=== PATIENT | female | born 1990 | race Two or more races ===

== ENCOUNTER 2020-08-02 18:36 | Outpatient (REF) | payer OTHER, SELFPAY | END 2020-08-02 18:37 | disposition home or self-care (01) | LOC: HO.LNP 18:36 | PROVIDERS: Visit Provider Internal Medicine | DX: Z20.822 Contact with and (suspected) exposure to COVID-19 (principal); J06.9 Acute upper respiratory infection, unspecified | CPT/HCPCS: U0003 ==

== ENCOUNTER 2022-09-30 20:33 | Emergency (ER) | payer OTHER, SELFPAY ==
[2022-09-30 20:54] VITALS: BP 137/83; PULSE 90; RESP 16; TEMP 36.6; O2SAT 98; BMI 30.1
--- NOTE | 2022-09-30 20:54 | ED_ITS ---
HPI - General Adult General Chief complaint: Abdominal Pain <DAVID Ayala - Last Filed: 09/30/22 20:57> Stated complaint: RIGHT FLANK PAIN <DAVID Ayala - Last Filed: 09/30/22 20:57> Time Seen by Provider: 09/30/22 21:15 <DAVID Ayala - Last Filed: 09/30/22 20:57> Source: patient <Fidel Echevarria MD - Last Filed: 09/30/22 23:51> Mode of arrival: ambulatory <Fidel Echevarria MD - Last Filed: 09/30/22 23:51> Limitations: no limitations <Fidel Echevarria MD - Last Filed: 09/30/22 23:51> History of Present Illness HPI narrative: patient complaining of right lateral lumbar area pain for last 2-3 weeks slight nausea no vomiting has 2- 3 times of diarrhea with increased anxiety no urinary symptoms no hematuria no history of kidney stone pain does get worse on movements <Fidel Echevarria MD - Last Filed: 09/30/22 23:51> Related Data Home medications: Previous Rx's Medication Instructions Recorded albuterol sulfate 90 mcg/actuation 1 inh inhalation QID PRN shortness 08/02/20 aerosol inhaler (Ventolin HFA) of breath or wheezing #8.5 grams cyclobenzaprine 10 mg tablet 10 mg PO Q8H #20 tabs 09/30/22 ibuprofen 600 mg tablet 600 mg PO Q6H PRN fever or pain 09/30/22 #30 tabs <DAVID Ayala - Last Filed: 09/30/22 20:57> Allergies/adverse reactions: Allergies Allergy/AdvReac Type Severity Reaction Status Date / Time SEASONAL ALLERGIES Allergy Mild ITCHY EYES Uncoded 09/30/22 20:57 pneumonia shot Allergy Unknown unknown Uncoded 09/30/22 20:57 <DAVID Ayala - Last Filed: 09/30/22 20:57> Review of Systems Review of Systems: Yes all other systems are reviewed and are negative <Fidel Echevarria MD - Last Filed: 09/30/22 23:51> [facility] Social History Social History: Social History Alcohol intake: current Alcohol intake frequency: holidays/special occasions only Smoked in Last 30 Days: No Use of substances other than those prescribed or required for medical reasons: No Advance Directives: No Patient : No <DAVID Ayala - Last Filed: 09/30/22 20:57> Physical Exam ED Vital Signs: Vital Signs - 24 hr 09/30/22 20:54 Temperature 97.9 F Pulse Rate 90 Respiratory Rate 16 Blood Pressure 137/83 Pulse Oximetry 98 Oxygen Delivery Method Room Air BMI result Body Mass Index 30.1 <DAVID Ayala - Last Filed: 09/30/22 20:57> Vital Signs - 24 hr 09/30/22 20:54 Temperature 97.9 F Pulse Rate 90 Respiratory Rate 16 Blood Pressure 137/83 Pulse Oximetry 98 Oxygen Delivery Method Room Air BMI result Body Mass Index 30.1 <Fidel Echevarria MD - Last Filed: 09/30/22 23:51> Appearance: Alert. Oriented X3. No acute distress. Eyes: PERRLA, No Nystagmus ENT: Pharynx normal. Oral Mucosa moist Neck: Normal inspection. Neck supple. CVS: Normal heart rate and rhythm. Pulses normal. Respiratory: No respiratory distress. Equal air entry bilateral, no wheezing/rales/rhonchi Abdomen: Soft and nontender. Bowel sounds are present, no mass palpable, no CVA tenderness Skin: Skin warm and dry. Normal skin color. Normal skin turgor. Extremities: No lower extremity edema. No calf tenderness back: Diffuse tenderness right lumbar paraspinal area no midline tenderness no severe tenderness Neuro: Oriented X 3. No motor deficit. <Fidel Echevarria MD - Last Filed: 09/30/22 23:51> Course Course Course Narrative: RME - 32 yo female presents to the ER for evaluation of worsening right lower back pain x1 week, increased urinary frequency, along with middle and suprapubic pains/pressure. She also endorses chills, nausea and diarrhea. No fevers, hematuria. No hx UTI. No CVA tenderness on exam. Plan: will start with UA, UPreg and basic labs work up. defer imaging for now. <DAVID Ayala - Last Filed: 09/30/22 20:57> Medications Administered Discontinued Medications Generic Name Dose Route Start Last Admin Trade Name Freq PRN Reason Stop Dose Admin Cyclobenzaprine HCl 10 mg 09/30/22 21:30 09/30/22 21:39 Cyclobenzaprine Hcl 10 Mg Tablet PO 09/30/22 21:31 10 mg ONCE ONE Administration Ibuprofen 600 mg 09/30/22 21:30 09/30/22 21:39 Ibuprofen 600 Mg Tablet PO 09/30/22 21:31 600 mg ONCE ONE Administration Ondansetron HCl 4 mg 09/30/22 22:38 09/30/22 22:45 Ondansetron Odt 4 Mg Tab.Rapdis TRANSLINGU 09/30/22 22:39 Not Given ONCE ONE <DAVID Ayala - Last Filed: 09/30/22 20:57> Medications Administered Discontinued Medications Generic Name Dose Route Start Last Admin Trade Name Freq PRN Reason Stop Dose Admin Cyclobenzaprine HCl 10 mg 09/30/22 21:30 09/30/22 21:39 Cyclobenzaprine Hcl 10 Mg Tablet PO 09/30/22 21:31 10 mg ONCE ONE Administration Ibuprofen 600 mg 09/30/22 21:30 09/30/22 21:39 Ibuprofen 600 Mg Tablet PO 09/30/22 21:31 600 mg ONCE ONE Administration Ondansetron HCl 4 mg 09/30/22 22:38 09/30/22 22:45 Ondansetron Odt 4 Mg Tab.Rapdis TRANSLINGU 09/30/22 22:39 Not Given ONCE ONE <Fidel Echevarria MD - Last Filed: 09/30/22 23:51> Medical Decision Making Medical Decision Making MDM Narrative: Patient with right lower back pain workup is negative except for very few RBCs in the urine clinically patient is muscular in character will discharge p atient on ibuprofen and muscle relaxer <Fidel Echevarria MD - Last Filed: 09/30/22 23:51> Lab Data [facility] Lab Attestation statement: I reviewed the patient's lab results. <Fidel Echevarria MD - Last Filed: 09/30/22 23:51> Result Diagrams: 09/30/22 21:25 09/30/22 21:25 <DAVID Ayala - Last Filed: 09/30/22 20:57> Labs: Lab Results 09/30/22 09/30/22 09/30/22 Range/Units 21:16 21:16 21:25 WBC 12.0 H (4.8-10.8) X10*3/uL RBC 4.09 L (4.20-5.50) X10*6/uL Hgb 12.3 (12.0-16.0) g/dl Hct 36.1 L (37.0-47.0) % MCV 88.3 (80.0-98.0) fL MCH 30.1 (27.0-33.0) pg MCHC 34.1 (31.0-35.0) g/dl RDW 12.5 (11.0-16.0) % Plt Count 306 (160-400) X10*3/uL MPV 9.6 (9.4-12.3) fL Immature Gran % (Auto) 0.3 (0.0-0.4) % Neut % (Auto) 59.2 (45-73) % Lymph % (Auto) 31.9 (20-40) % [place] % (Auto) 5.5 (2-11) % Eos % (Auto) 2.6 (0-4) % Baso % (Auto) 0.5 (0-2) % Lymph # (Auto) 3.8 (1.2-4.9) X10*3/uL [place] # (Auto) 0.7 (0.1-1.2) X10*3/uL Eos # (Auto) 0.3 (0.0-0.4) X10*3/uL Baso # (Auto) 0.1 (0.0-0.2) X10*3/uL Abs Immat Gran (auto) 0.03 (0.00-0.03) X10*3/uL Absolute Neuts (auto) 7.1 (2.0-8.3) x10*3/uL Absolute Nucleated RBC 0.000 (0.0-0.012) X10*3/uL Nucleated RBC % (auto) 0.0 (0.0-0.2) /100WBC Sodium (135-145) mmol/L Potassium (3.3-5.1) mmol/L Chloride (96-108) mmol/L Carbon Dioxide (22-29) mmol/L Anion Gap (12-20) BUN (9-16) mg/dL Creatinine (0.5-1.4) mg/dL Estim Creat Clear Calc Estimated GFR Random Glucose (60-115) mg/dL Calcium (8.4-10.2) mg/dL Total Bilirubin (0.0-1.0) mg/dL Direct Bilirubin (0.0-0.5) mg/dL AST (5-31) U/L ALT (0-31) U/L Alkaline Phosphatase (39-117) U/L Total Protein (6.5-8.0) g/dL Albumin (3.5-5.0) g/dL Lipase (8-78) U/L Urine Color Yellow Urine Appearance Clear Urine pH 5.5 (5.0-9.0) Ur Specific [place] 1.020 (1.005-1.025) Urine Protein Negative (Neg-Trace) mg/dL Urine Glucose (UA) Negative (Negative) mg/dL Urine Ketones Negative (Negative) mg/dL Urine Blood Trace H (Negative) Urine Nitrite Negative (Negative) Ur Leukocyte Esterase Trace H (Negative) Urine RBC 3-5 H (0-2) /HPF Urine WBC 0-5 (0-5) /HPF Ur Squamous Epith Cells 3-5 (0-2) /HPF Urine Bacteria Trace (None Seen) Hyaline Casts 0-2 (0-2) /LPF Urine Test NEGATIVE (NEGATIVE) 09/30/22 09/30/22 Range/Units 21:25 21:51 WBC (4.8-10.8) X10*3/uL RBC (4.20-5.50) X10*6/uL Hgb (12.0-16.0) g/dl Hct (37.0-47.0) % MCV (80.0-98.0) fL MCH (27.0-33.0) pg MCHC (31.0-35.0) g/dl RDW (11.0-16.0) % Plt Count (160-400) X10*3/uL MPV (9.4-12.3) fL Immature Gran % (Auto) (0.0-0.4) % Neut % (Auto) (45-73) % Lymph % (Auto) (20-40) % [place] % (Auto) (2-11) % Eos % (Auto) (0-4) % Baso % (Auto) (0-2) % Lymph # (Auto) (1.2-4.9) X10*3/uL [place] # (Auto) (0.1-1.2) X10*3/uL Eos # (Auto) (0.0-0.4) X10*3/uL Baso # (Auto) (0.0-0.2) X10*3/uL Abs Immat Gran (auto) (0.00-0.03) X10*3/uL Absolute Neuts (auto) (2.0-8.3) x10*3/uL Absolute Nucleated RBC (0.0-0.012) X10*3/uL Nucleated RBC % (auto) (0.0-0.2) /100WBC Sodium 138 (135-145) mmol/L Potassium 4.5 (3.3-5.1) mmol/L Chloride 102 (96-108) mmol/L Carbon Dioxide 25 (22-29) mmol/L Anion Gap 16 (12-20) BUN 15 (9-16) mg/dL Creatinine 0.87 (0.5-1.4) mg/dL Estim Creat Clear Calc 90.4 Estimated GFR > 60 Random Glucose 111 (60-115) mg/dL Calcium 10.1 (8.4-10.2) mg/dL Total Bilirubin 0.4 (0.0-1.0) mg/dL Direct Bilirubin < 0.2 (0.0-0.5) mg/dL AST 19 (5-31) U/L ALT 20 (0-31) U/L Alkaline Phosphatase 82 (39-117) U/L Total Protein 7.2 (6.5-8.0) g/dL Albumin 4.5 (3.5-5.0) g/dL Lipase 21 (8-78) U/L Urine Color Urine Appearance Urine pH (5.0-9.0) Ur Specific [place] (1.005-1.025) Urine Protein (Neg-Trace) mg/dL Urine Glucose (UA) (Negative) mg/dL Urine Ketones (Negative) mg/dL Urine Blood (Negative) Urine Nitrite (Negative) Ur Leukocyte Esterase (Negative) Urine RBC (0-2) /HPF Urine WBC (0-5) /HPF Ur Squamous Epith Cells (0-2) /HPF Urine Bacteria (None Seen) Hyaline Casts (0-2) /LPF Urine Test (NEGATIVE) <DAVID Ayala - Last Filed: 09/30/22 20:57> Lab Results 09/30/22 09/30/22 09/30/22 Range/Units 21:16 21:16 21:25 WBC 12.0 H (4.8-10.8) X10*3/uL RBC 4.09 L (4.20-5.50) X10*6/uL Hgb 12.3 (12.0-16.0) g/dl Hct 36.1 L (37.0-47.0) % MCV 88.3 (80.0-98.0) fL MCH 30.1 (27.0-33.0) pg MCHC 34.1 (31.0-35.0) g/dl RDW 12.5 (11.0-16.0) % Plt Count 306 (160-400) X10*3/uL MPV 9.6 (9.4-12.3) fL Immature Gran % (Auto) 0.3 (0.0-0.4) % Neut % (Auto) 59.2 (45-73) % Lymph % (Auto) 31.9 (20-40) % [place] % (Auto) 5.5 (2-11) % Eos % (Auto) 2.6 (0-4) % Baso % (Auto) 0.5 (0-2) % Lymph # (Auto) 3.8 (1.2-4.9) X10*3/uL [place] # (Auto) 0.7 (0.1-1.2) X10*3/uL Eos # (Auto) 0.3 (0.0-0.4) X10*3/uL Baso # (Auto) 0.1 (0.0-0.2) X10*3/uL Abs Immat Gran (auto) 0.03 (0.00-0.03) X10*3/uL Absolute Neuts (auto) 7.1 (2.0-8.3) x10*3/uL Absolute Nucleated RBC 0.000 (0.0-0.012) X10*3/uL Nucleated RBC % (auto) 0.0 (0.0-0.2) /100WBC Sodium (135-145) mmol/L Potassium (3.3-5.1) mmol/L Chloride (96-108) mmol/L Carbon Dioxide (22-29) mmol/L Anion Gap (12-20) BUN (9-16) mg/dL Creatinine (0.5-1.4) mg/dL Estim Creat Clear Calc Estimated GFR Random Glucose (60-115) mg/dL Calcium (8.4-10.2) mg/dL Total Bilirubin (0.0-1.0) mg/dL Direct Bilirubin (0.0-0.5) mg/dL AST (5-31) U/L ALT (0-31) U/L Alkaline Phosphatase (39-117) U/L Total Protein (6.5-8.0) g/dL Albumin (3.5-5.0) g/dL Lipase (8-78) U/L Urine Color Yellow Urine Appearance Clear Urine pH 5.5 (5.0-9.0) Ur Specific [place] 1.020 (1.005-1.025) Urine Protein Negative (Neg-Trace) mg/dL Urine Glucose (UA) Negative (Negative) mg/dL Urine Ketones Negative (Negative) mg/dL Urine Blood Trace H (Negative) Urine Nitrite Negative (Negative) Ur Leukocyte Esterase Trace H (Negative) Urine RBC 3-5 H (0-2) /HPF Urine WBC 0-5 (0-5) /HPF Ur Squamous Epith Cells 3-5 (0-2) /HPF Urine Bacteria Trace (None Seen) Hyaline Casts 0-2 (0-2) /LPF Urine Test NEGATIVE (NEGATIVE) 09/30/22 09/30/22 Range/Units 21:25 21:51 WBC (4.8-10.8) X10*3/uL RBC (4.20-5.50) X10*6/uL Hgb (12.0-16.0) g/dl Hct (37.0-47.0) % MCV (80.0-98.0) fL MCH (27.0-33.0) pg MCHC (31.0-35.0) g/dl RDW (11.0-16.0) % Plt Count (160-400) X10*3/uL MPV (9.4-12.3) fL Immature Gran % (Auto) (0.0-0.4) % Neut % (Auto) (45-73) % Lymph % (Auto) (20-40) % [place] % (Auto) (2-11) % Eos % (Auto) (0-4) % Baso % (Auto) (0-2) % Lymph # (Auto) (1.2-4.9) X10*3/uL [place] # (Auto) (0.1-1.2) X10*3/uL Eos # (Auto) (0.0-0.4) X10*3/uL Baso # (Auto) (0.0-0.2) X10*3/uL Abs Immat Gran (auto) (0.00-0.03) X10*3/uL Absolute Neuts (auto) (2.0-8.3) x10*3/uL Absolute Nucleated RBC (0.0-0.012) X10*3/uL Nucleated RBC % (auto) (0.0-0.2) /100WBC Sodium 138 (135-145) mmol/L Potassium 4.5 (3.3-5.1) mmol/L Chloride 102 (96-108) mmol/L Carbon Dioxide 25 (22-29) mmol/L Anion Gap 16 (12-20) BUN 15 (9-16) mg/dL Creatinine 0.87 (0.5-1.4) mg/dL Estim Creat Clear Calc 90.4 Estimated GFR > 60 Random Glucose 111 (60-115) mg/dL Calcium 10.1 (8.4-10.2) mg/dL Total Bilirubin 0.4 (0.0-1.0) mg/dL Direct Bilirubin < 0.2 (0.0-0.5) mg/dL AST 19 (5-31) U/L ALT 20 (0-31) U/L Alkaline Phosphatase 82 (39-117) U/L Total Protein 7.2 (6.5-8.0) g/dL Albumin 4.5 (3.5-5.0) g/dL Lipase 21 (8-78) U/L Urine Color Urine Appearance Urine pH (5.0-9.0) Ur Specific [place] (1.005-1.025) Urine Protein (Neg-Trace) mg/dL Urine Glucose (UA) (Negative) mg/dL Urine Ketones (Negative) mg/dL Urine Blood (Negative) Urine Nitrite (Negative) Ur Leukocyte Esterase (Negative) Urine RBC (0-2) /HPF Urine WBC (0-5) /HPF Ur Squamous Epith Cells (0-2) /HPF Urine Bacteria (None Seen) Hyaline Casts (0-2) /LPF Urine Test (NEGATIVE) <Fidel Echevarria MD - Last Filed: 09/30/22 23:51> Discharge Plan Discharge Clinical Impression: Acute lumbar myofascial strain <DAVID Ayala - Last Filed: 09/30/22 20:57> Patient Disposition: Home, Self-Care <DAVID Ayala - Last Filed: 09/30/22 20:57> Additional Instructions: Likely have muscular strain as a cause for the lower back pain Take ibuprofen and muscle relaxant as prescribed follow with PCP if not better <DAVID Ayala - Last Filed: 09/30/22 20:57> Prescriptions: New cyclobenzaprine 10 mg tablet 10 mg PO Q8H Qty: 20 0RF ibuprofen 600 mg tablet 600 mg PO Q6H PRN (Reason: fever or pain) Qty: 30 0RF No Action albuterol sulfate [Ventolin HFA] 90 mcg/actuation HFA aerosol inhaler 1 inh inhalation QID PRN (Reason: shortness of breath or wheezing) Qty: 8.5 1RF <DAVID Ayala - Last Filed: 09/30/22 20:57> Interventions: ED Discharge Assessment Last Done: 09/30/22 22:43 <DAVID Ayala - Last Filed: 09/30/22 20:57> Discharge Date/Time: 09/30/22 22:47 <DAVID Ayala - Last Filed: 09/30/22 20:57>
[2022-09-30 21:30] LABS: Basophils Absolute Auto 0.1 X10*3/uL (0.0-0.2); Basophils Percent Auto 0.5 % (0-2); Eosinophils Absolute Auto 0.3 X10*3/uL (0.0-0.4); Eosinophils Percent Auto 2.6 % (0-4); Hematocrit 36.1 % (37.0-47.0); Hemoglobin 12.3 g/dl (12.0-16.0); Imm Gran Abs Auto 0.03 X10*3/uL (0.00-0.03); Imm Gran Pct Auto 0.3 % (0.0-0.4); Lymphocytes Absolute Auto 3.8 X10*3/uL (1.2-4.9); Lymphocytes Percent Auto 31.9 % (20-40); MANUAL DIFF FLAG NO; Mean Corpuscular HGB Conc 34.1 g/dl (31.0-35.0); Mean Corpuscular Hemoglobin 30.1 pg (27.0-33.0); Mean Corpuscular Volume 88.3 fL (80.0-98.0); Mean Platelet Volume 9.6 fL (9.4-12.3); Monocytes Absolute Auto 0.7 X10*3/uL (0.1-1.2); Monocytes Percent Auto 5.5 % (2-11); Neutrophils Absolute Auto 7.1 x10*3/uL (2.0-8.3); Neutrophils Percent Auto 59.2 % (45-73); Platelet Count 306 X10*3/uL (160-400); Red Blood Count 4.09 X10*6/uL (4.20-5.50); Red Cell Distribution Width 12.5 % (11.0-16.0)
[2022-09-30 21:33] LABS: Appearance Urine Clear; Color Urine Yellow; Glucose Urine UA Negative (Negative); Leukocyte Esterase Urine Trace (Negative); Nitrite Urine Negative (Negative); PH 5.5 (5.0-9.0); UMIC TRIGGER UACC YES; Urine Blood Trace (Negative); Urine Ketones Negative (Negative); Urine Protein Negative (Neg-Trace)
[2022-09-30 21:36] LABS: UPreg QC Valid YES; Urine Pregnancy NEGATIVE (NEGATIVE)
[2022-09-30 21:37] LABS: Bacteria Urine Trace (None Seen); Hyaline Casts Urine 0-2 /LPF (0-2); WBC Urine 0-5 /HPF (0-5)
[2022-09-30] MEDS: Ibuprofen 600 MG TABLET PO (21:39)
[2022-09-30] MEDS: Cyclobenzaprine HCl 10 MG TABLET PO (21:39)
[2022-09-30 21:50] LABS: Alanine Aminotransferase 20 U/L (0-31); Albumin Level 4.5 g/dL (3.5-5.0); Alkaline Phosphatase 82 U/L (39-117); Anion Gap 16 (12-20); Aspartate Amino Transferase 19 U/L (5-31); Bilirubin Direct < 0.2 mg/dL (0.0-0.5); Bilirubin Total 0.4 mg/dL (0.0-1.0); Blood Urea Nitrogen 15 mg/dL (9-16); Calcium 10.1 mg/dL (8.4-10.2); Carbon Dioxide 25 mmol/L (22-29); Chloride 102 mmol/L (96-108); Creatinine Clr Calc Pharmacy 90.4; Estimated Glomerular Filt Rate > 60; Glucose Random 111 mg/dL (60-115); Potassium 4.5 mmol/L (3.3-5.1); Sodium 138 mmol/L (135-145); Total Protein 7.2 g/dL (6.5-8.0)
[2022-09-30 22:14] LABS: Lipase 21 U/L (8-78)
--- NOTE | 2022-09-30 22:45 | PC.NURSE ---
Pt A&Ox4, reports 02/01 R sided lower back pain, worsening since yesterday with nausea. Meds given as documented. Pt refused nausea med.
== END 2022-09-30 22:47 | disposition home or self-care (01) ==
PROVIDERS: Physician Assistant; Emergency Provider Internal Medicine
DX: S39.012A Strain of muscle, fascia and tendon of lower back, initial encounter (principal); X58.XXXA Exposure to other specified factors, initial encounter; Y93.9 Activity, unspecified; Y92.9 Unspecified place or not applicable; Y99.9 Unspecified external cause status
CPT/HCPCS: 36415; 80048; 80076; 81001; 81025; 83690; 85025; 99283; 99284

== ENCOUNTER 2025-05-15 13:07 | Emergency (ER) | payer OTHER, SELFPAY ==
[2025-05-15 13:54] VITALS: BP 141/86; PULSE 100; RESP 18; TEMP 36.6; O2SAT 100; BMI 29.9
--- NOTE | 2025-05-15 13:55 | ECG_ITS ---
Test Reason : dizziness Blood Pressure : */* mmHG Vent. Rate : 92 BPM Atrial Rate : 92 BPM P-R Int : 126 ms QRS Dur : 84 ms QT Int : 346 ms P-R-T Axes : 50 16 -7 degrees QTcB Int : 427 ms Normal sinus rhythm Nonspecific T wave abnormality Abnormal ECG When compared with ECG of 20-Dec-2012 00:49, MANUAL COMPARISON REQUIRED PREVIOUS ECG IS INCOMPATIBLE Referred By: Roshan Willson Electronically Signed By: DELANO MORAN MD
--- NOTE | 2025-05-15 13:55 | ED_ITS ---
HPI - General Adult General Chief complaint: General Medical Stated complaint: Delirium tremors? Time Seen by Provider: 05/15/25 17:50 Source: patient Mode of arrival: ambulatory Limitations: no limitations History of Present Illness ED Provider: Dr. Americo Vaughan HPI narrative: 34-year-old female with a history of asthma, preeclampsia requiring emergency C- section 1 year prior who presents emergency department for evaluation of an episode of confusion that happened earlier this morning. The patient states that over the weekend she did have more alcohol to drink than usual. She states that on Wednesday she drank a bottle of wine, Wednesday she drank 3 cups of beer and on Wednesday she drank 2 cups of beer and 3 glasses of wine. She did vomit on Wednesday after drinking. She states she went to bed last night around 21:00 and woke up at midnight with confusion. She states she felt very anxious, she was not in touch with reality, the symptoms lasted for 3-4 hours then she eventually fell asleep. At the time of evaluation she feels back to her baseline. She states that this has happened to her twice before in the past. The patient is concerned that she may have delirium tremens or dementia. She states that her mother was diagnosed with dementia in her 60s in his now 73 years old. Patient states that she has had a cold for the past 2 days. She states she has nasal congestion and a sore throat with fever of 101 degrees F yesterday. She states that her symptoms have improved today. Related Data Previous Rx's ?Medication ?Instructions ?Recorded albuterol sulfate 90 mcg/actuation 1 inh inhalation QI D PRN shortness 08/02/20 aerosol inhaler (Ventolin HFA) of breath or wheezing # 8.5 grams cyclobenzaprine 10 mg tablet 10 mg PO Q8H #20 tabs 03/17 ibuprofen 600 mg tablet 600 mg PO Q6H PRN fever or p ain 09/30/22 #30 tabs Allergies Allergy/AdvReac Type Severity Reaction Status Date / Time SEASONAL ALLERGIES Allergy Mild ITCHY EYES Uncoded 05/15/25 13:57 pneumonia shot Allergy Unknown unknown Uncoded 05/15/25 13:57 Review of Systems 2 Review of Systems: Yes all other systems are reviewed and are negative PMFSH Past Medical History [facility] Narrative: Social history: 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 She states that her job is stressful, she also has a 1-year-old and a 3-year-old that she is caring for. She denies tobacco and drug use. She states that she rarely drinks but did have more alcohol than usual over the weekend. Social History Social History Alcohol intake: current Alcohol intake frequency: holidays/special occasions only Advance Directives: Yes Advance Directives Information Provided: Yes Advance Directives on File: Yes Advance Directives Date on File: 05/15/25 Physical Exam ED Vital Signs: Vital Signs - 24 hr 05/15/25 13:54 05/15/25 18:17 Temperature 98 F 98.2 F Pulse Rate 100 90 Respiratory Rate 18 20 Blood Pressure 141/86 H 128/86 Pulse Oximetry 100 100 Oxygen Delivery Method Room Air Room Air BMI result Body Mass Index 29.9 Vital signs revealed an elevated blood pressure of 141/86 with a an elevated heart rate of 100 otherwise unremarkable Exam: General: Awake, alert in no distress Head: Normocephalic, atraumatic EENT: PERRL, sclera and conjunctiva are normal, mouth with no erythema or exudates Neck: Supple, no adenopathy Lung: breath sounds symmetric, no wheezing, no rales and no rhonchi Chest: symmetric movement, nontender Heart: regular rate and rhythm, normal S1, S2 no murmurs or rubs Abdomen: soft, non-tender, nondistended, normal bowel sounds Back: no vertebral tenderness, no CVAT Extremities: no deformities, moves all extremities symmetrically, no edema Neuro: General: ?Awake, alert, oriented, normal speech Cranial nerves: ?Cranial nerves ?intact Strength: ?Moves all extremities symmetrically, strength 5/5 Cerebellar: ?Good igeetd-rf-lxlq-to-finger, good rapid finger movement, normal heel to andrade Psych: Pleasant, cooperative Course Course Course Narrative: RME, this is a rapid medical exam performed by Rolando Willson please refer to primary provider for complete H&P- 34 year old female presents for evaluation of brain fog. She reports that she drinks 3-5 drinks several days a week, but not daily. No history of alcohol withdrawal. Last drink was 2 days ago. She reports that she woke up in the middle of the night last night and was panicking. She does not fell well. No neuro defecits in triage. Plan for labs and aethanol level. Medical Decision Making Medical Decision Making [facility] Narrative: 34-year-old female with a history of asthma, preeclampsia requiring emergency C- section 1 year prior who presents emergency department for evaluation of an episode of confusion that happened earlier this morning. The patient states that over the weekend she did have more alcohol to drink than usual. She states that on Wednesday she drank a bottle of wine, Wednesday she drank 3 cups of beer and on Wednesday she drank 2 cups of beer and 3 glasses of wine. She did vomit on Wednesday after drinking. She states she went to bed last night around 21:00 and woke up at midnight with confusion. She states she felt very anxious, she was not in touch with reality, the symptoms lasted for 3-4 hours then she eventually fell asleep. At the time of evaluation she feels back to her baseline. She states that this has happened to her twice before in the past. The patient is concerned that she may have delirium tremens or dementia. She states that her mother was diagnosed with dementia in her 60s in his now 73 years old. Patient states that she has had a cold for the past 2 days. She states she has nasal congestion and a sore throat with fever of 101 degrees F yesterday. She states that her symptoms have improved today. Vital signs revealed an elevated blood pressure otherwise unremarkable. Physical examination was unremarkable. Differential diagnosis: ?Includes but is not limited to alcohol intoxication, alcohol withdrawal, drug delirium, panic attack, anxiety, depression, anemia, electrolyte abnormalities Course: My independent interpretation patient's laboratory evaluation as follows: Mild normocytic anemia with an H&H of 12.6 and 36.5 with an MCV of 88. WBC slightly elevated at 11,600. CMP was normal. Lipase was normal. Alcohol was below detectable limits. Urinalysis/microscopic was unremarkable Patient's presentation is most consistent with anxiety/panic attack and I did discuss this with the patient. The patient is not suicidal or homicidal, she denies severe depression. I did tell the patient that she should follow up with her PCP to discuss possible treatment for depression/anxiety. She was also told that she can follow up with [facility] for further treatment the patient was given a work note to return to work on , 05/17/2025. She was given printed and verbal instructions and discharged home Differential Diagnosis Differential Diagnoses: The differential diagnosis associated with the presentation includes (See above) Admission/Observation Consideration of admission/observation: Escalation of care including admission/observation considered (Yes) Lab Data MDM Lab Attestation statement: I reviewed the patient's lab results. 05/15/25 14:31 05/15/25 14:31 Labs: Lab Results 05/15/25 Range/Units 14:31 WBC 11.6 H (4.8-10.8) X10*3/uL RBC 4.15 L (4.20-5.50) X10*6/uL Hgb 12.6 (12.0-16.0) g/dl Hct 36.5 L (37.0-47.0) % MCV 88.0 (80.0-98.0) fL MCH 30.4 (27.0-33.0) pg MCHC 34.5 (31.0-35.0) g/dl RDW 12.4 (11.0-16.0) % Plt Count 275 (160-400) X10*3/uL MPV 9.3 L (9.4-12.3) fL Immature Gran % (Auto) 0.3 (0.0-0.4) % Neut % (Auto) 78.5 H (45-73) % Lymph % (Auto) 11.6 L (20-40) % [place] % (Auto) 6.5 (2-11) % Eos % (Auto) 2.7 (0-4) % Baso % (Auto) 0.4 (0-2) % Lymph # (Auto) 1.4 (1.2-4.9) X10*3/uL [place] # (Auto) 0.8 (0.1-1.2) X10*3/uL Eos # (Auto) 0.3 (0.0-0.4) X10*3/uL Baso # (Auto) 0.1 (0.0-0.2) X10*3/uL Abs Immat Gran (auto) 0.03 (0.00-0.03) X10*3/uL Absolute Neuts (auto) 9.1 H (2.0-8.3) x10*3/uL Absolute Nucleated RBC 0.000 (0.0-0.012) X10*3/uL Nucleated RBC % (auto) 0.0 (0.0-0.2) /100WBC Sodium 140 (135-145) mmol/L Potassium 4.1 (3.3-5.1) mmol/L Chloride 107 (96-108) mmol/L Carbon Dioxide 26 (22-29) mmol/L Anion Gap 11 L (12-20) BUN 9 (9-16) mg/dL Creatinine 0.64 (0.5-1.4) mg/dL Estim Creat Clear Calc 120.3 Estimated GFR > 60 Random Glucose 107 (60-115) mg/dL Calcium 10.1 (8.4-10.2) mg/dL Magnesium 2.1 (1.6-2.6) mg/dL Total Bilirubin 0.3 (0.0-1.0) mg/dL AST 20 (5-31) U/L ALT 21 (0-31) U/L Alkaline Phosphatase 89 (39-117) U/L Total Protein 7.8 (6.5-8.0) g/dL Albumin 5.0 (3.5-5.0) g/dL Lipase 17 (8-78) U/L Beta HCG, Quant < 2 mIU/mL Urine Color Yellow Urine Appearance Clear Urine pH 6.5 (5.0-9.0) Ur Specific [place] <= 1.005 (1.005-1.025) Urine Protein Negative (Neg-Trace) mg/dL Urine Glucose (UA) Negative (Negative) mg/dL Urine Ketones Negative (Negative) mg/dL Urine Blood Negative (Negative) Urine Nitrite Negative (Negative) Ur Leukocyte Esterase Negative (Negative) Urine RBC 0-2 (0-2) /HPF Urine WBC 0-5 (0-5) /HPF Ur Squamous Epith Cells 0-2 (0-2) /HPF Urine Bacteria None Seen (None Seen) Hyaline Casts 0-2 (0-2) /LPF Ethyl Alcohol < 10 mg/dL Chronic Conditions Patient?s care impacted by: Other (Asthma) Discharge Plan Discharge Clinical Impression: Anxiety attack Patient Disposition: Home, Self-Care Instructions: Panic Attack (ED) Additional Instructions: Your exam today was normal. You had a complete blood count, comprehensive metabolic panel and a test-these tests were all normal, you are not . Your urine test was normal as well. At this time, I do not think that your symptoms are consistent with dementia or delirium tremens from your alcohol use. Your symptoms are more consistent with a an anxiety or panic attack. Anxiety and panic attacks or sometimes signs of stress and depression. You should discuss this with your doctor and you can also follow up with [facility]. Follow-up with your doctor in 2 days. Please return to the emergency department if your symptoms get worse or if you develop any symptoms that are concerning to you. Please see the work note. You were seen in our Emergency Department today for treatment of a behavioral health issue. It is important after your visit that you follow up with either your behavioral health provider or a primary care doctor within 7 days.? If you have trouble finding a therapist you can reach out to [address] [phone] The National Suicide and Crisis Lifeline can be reached 7 days a week 24 hours a day.? Call 988 to speak with someone.? Return for any worsening symptoms or concerns such as thoughts of self harm or harm to others. Please call 911 if you feel your mental health is worsening.? Prescriptions: No Action cyclobenzaprine 10 mg tablet 10 mg PO Q8H Qty: 20 0RF ibuprofen 600 mg tablet 600 mg PO Q6H PRN (Reason: fever or pain) Qty: 30 0RF albuterol sulfate [Ventolin HFA] 90 mcg/actuation HFA aerosol inhaler 1 inh inhalation QID PRN (Reason: shortness of breath or wheezing) Qty: 8.5 1RF Stand Alone Forms: Work/School Release Print Language: Filipino
[2025-05-15 14:39] LABS: MANUAL DIFF FLAG NO
[2025-05-15 14:40] LABS: Hematocrit 36.5 % (37.0-47.0); Hemoglobin 12.6 g/dl (12.0-16.0); Imm Gran Abs Auto 0.03 X10*3/uL (0.00-0.03); Imm Gran Pct Auto 0.3 % (0.0-0.4); Lymphocytes Absolute Auto 1.4 X10*3/uL (1.2-4.9); Mean Corpuscular HGB Conc 34.5 g/dl (31.0-35.0); Mean Corpuscular Hemoglobin 30.4 pg (27.0-33.0); Mean Corpuscular Volume 88.0 fL (80.0-98.0); NRBC Abs Auto 0.000 X10*3/uL (0.0-0.012); NRBC Pct Auto 0.0 /100WBC (0.0-0.2); Platelet Count 275 X10*3/uL (160-400); Red Blood Count 4.15 X10*6/uL (4.20-5.50); White Blood Count 11.6 X10*3/uL (4.8-10.8)
[2025-05-15 14:41] LABS: Appearance Urine Clear; Glucose Urine UA Negative (Negative); PH 6.5 (5.0-9.0); Specific Gravity - Urine <= 1.005 (1.005-1.025)
[2025-05-15 15:04] LABS: Alanine Aminotransferase 21 U/L (0-31); Albumin Level 5.0 g/dL (3.5-5.0); Alkaline Phosphatase 89 U/L (39-117); Anion Gap 11 (12-20); Aspartate Amino Transferase 20 U/L (5-31); Blood Urea Nitrogen 9 mg/dL (9-16); Calcium 10.1 mg/dL (8.4-10.2); Carbon Dioxide 26 mmol/L (22-29); Chloride 107 mmol/L (96-108); Creatinine Clr Calc Pharmacy 120.3; Estimated Glomerular Filt Rate > 60; Lipase 17 U/L (8-78); Magnesium 2.1 mg/dL (1.6-2.6); Potassium 4.1 mmol/L (3.3-5.1); Sodium 140 mmol/L (135-145); Total Protein 7.8 g/dL (6.5-8.0)
[2025-05-15 18:17] VITALS: BP 128/86; PULSE 90; RESP 20; TEMP 36.8; O2SAT 100
[2025-05-15 18:49] VITALS: BP 128/86; PULSE 90; RESP 20; TEMP 36.8; O2SAT 100
--- OUTSIDE RECORDS SUMMARY | 2025-05-15 21:15 | XMS_ITS | Encounter Summary ---
Author Organization [facility] Address [address] [place] [phone] Phone Care Team Providers Care Pet Trainer Name Role Phone Latoya Bowie DO Primary Care Provider [phone] Encounter Details Date Type Department Care Team (Late st Contact Info) Description 08/14/2011 Documentation [facility] Family Medicine [address] [place] [address] Family Medicine, Physician [address] [place], [place] [id number] Social History Tobacco Use Types Packs/Day Years Used Date Smoking Tobacco: Never Assessed Comments Unknown Sex and Gender Information Value Date Recorded Sex Assigned at Not on file Legal Sex Female 4:42 PM EDT Gender Identity Not on file Sexual Orientation Not on file documented as of this encounter Plan of Treatment Not on file documented as of this encounter Visit Diagnoses Not on filedocumented in this encounter Care Teams Pet Trainer Relationship Specialty Start Date End Date Latoya Bowie DO [address] [facility] [address] [place] [id number] PCP - General 03/05/17 12/30/22 documented as of this encounter
--- OUTSIDE RECORDS SUMMARY | 2025-05-15 21:15 | XMS_ITS | Clinical Summary ---
Author Organization [facility] Address [address] [place] [address] Care Team Providers Care Retail Team Leader Name Role Phone Unavailable Primary Care Provider Unavailabl e Social History Tobacco Use Types Packs/Day Years Used Date Smoking Tobacco: Never Assessed Comments Unknown Sex and Gender Information Value Date Recorded Sex Assigned at Not on file Legal Sex Female 4:37 AM EST Gender Identity Not on file Sexual Orientation Not on file Plan of Treatment Health Maintenance Due Date Last Done Comments DTaP,Tdap,and Td Vaccines (1 - Tdap) 2008 Hepatitis B Vaccines (1 of 3 - 19+ 3-dose series) 2008 Cervical Cancer Screening: P ap Smear 2010 HPV Vaccines (1 - 3-dose SCD M series) 2016 Depression Screening 07/26/2024 COVID-19 Vaccine ( - 2023-2 5 season) 2025 Influenza Vaccine (#1) 2025 RSV Immunization Adult Patie nts (1 - 1-dose 75+ series) 2064 HIB Vaccines Aged Out No longer eligi ble based on patient's age to complete this topic Hepatitis A Vaccines Aged Out No long er eligible based on patient's age to complete this topic IPV Vaccines Aged Out No longer eligi ble based on patient's age to complete this topic MMR Vaccines Aged Out No longer eligi ble based on patient's age to complete this topic Meningococcal ACWY Vaccine Aged Out N o longer eligible based on patient's age to complete this topic Meningococcal B Vaccine Aged Out No l onger eligible based on patient's age to complete this topic Pneumococcal Vaccine: Pediat rics (0 to 5 Years) and At-Risk Patients (6 to 49 Years) Aged Out No longer eligible b ased on patient's age to complete this topic RSV Immunization Patients Un caitie 20 months Aged Out No longer eligible b ased on patient's age to complete this topic Varicella Vaccines Aged Out No longer eligible based on patient's age to complete this topic
--- OUTSIDE RECORDS SUMMARY | 2025-05-15 21:15 | XMS_ITS | Clinical Summary ---
Author Organization [facility] Address [address] [place] [phone] Phone Care Team Providers Care Shift Superintendent Caustic Cresylate Name Role Phone Unavailable Primary Care Provider Unavailabl e Immunizations Immunization Administration Dates Next Due DTaP 5 09/22/1994, 1,03/25/1990,01/22,1989 HPV, Quadrivalent 04/09/2010 Hep B, ped/adol 03/06/2002,10/27/2001,09/26/2001 IPV 09/22/1994, 1,01/22/1990,10/23 Influenza Split 04/09/2010 Influenza, injectable, trivalent 06/16/2006,05/26 MMR 09/22/1994,12/23/1990 Meningococcal Conj (Menactra) MCV4P 02/25/2006 Td (adult) (MBL), 2 Lf tetan us toxoid, PF, adsorbed 09/26/2001 Tdap 02/11/2009 Varicella 02/14/2009,09/05/1998 Family History Relation Name Status Comments Father Father: levi dder removed, Diabetes mellitus Mother Mother: levi dder removed Sister 1 Sister: Asthma, Obesity, Asthma Sister 2 Sister: Asthma, Obesity, Asthma Sister 3 Sister: Asthma, Obesity, Asthma Social History Tobacco Use Types Packs/Day Years Used Date Smoking Tobacco: Never Assessed Comments Unknown Sex and Gender Information Value Date Recorded Sex Assigned at Not on file Legal Sex Female 4:42 PM EDT Gender Identity Not on file Sexual Orientation Not on file Last Filed Vital Signs Vital Sign Reading Time Taken Comments Blood Pressure 112/70 04/09/2010 12:00 AM EDT Pulse 100 04/09/2010 12:00 AM EDT Temperature 37 C (98.6 F) 11/28/2010 12:00 AM EDT Respiratory Rate - - Oxygen Saturation - - Inhaled Oxygen Concentration - - Weight 59.4 kg (131 lb) 11/28/2010 12:00 AM EDT Height 158.2 cm (5' 2.3 ) 04/09/2010 12:00 AM ED T Body Mass Index 23.73 04/09/2010 12:00 AM EDT Plan of Treatment Health Maintenance Due Date Last Done Comments HPV Vaccines (2 - 3-dose series) 05/07/2010 04/09/2010 DTaP,Tdap,and Td Vaccines (7 - Td or Tdap) 02/11/2019 02/11/2009, 09/26/2001, 09/22/1994, Additional history exists Influenza Vaccines (#1) 2025 04/09/20, 06/16/2006, 06/04/2005 COVID-19 Vaccine (2024- season) 2025 IPV Vaccines Completed 09/22/1994, 04/27, 01/22/1990, Additional history exists MMR Vaccines Completed 09/22/1994, 12/23/1990 Hepatitis B Vaccines Completed 03/06/2002, 10/27/2001, 09/26/2001 Meningococcal Vaccine Completed 02/25/2006 Varicella Vaccines Completed 02/14/2009, 09/05/1998 HIB Vaccines Aged Out No longer eligi ble based on patient's age to complete this topic Hepatitis A Vaccines Aged Out No long er eligible based on patient's age to complete this topic Men B Vaccine Aged Out No longer elig ible based on patient's age to complete this topic Pneumococcal Vaccine Aged Out No long er eligible based on patient's age to complete this topic Procedures * Due to [place] [employer] law, this organization might not be sharing sensitive test results. Procedure Name Priority Date/Time Associated Diagnosis Comments CHLAMYDIA AND GONORRHEA, AMPLIFIED Routine 04/10/2010 2:44 PM EDT from Last 3 Months or Most Recently Relevant to Health Maintenance Results * Due to [place] [employer] law, this organization might not be sharing sensitive test results. * Chlamydia and Gonorrhoea, Amplified (04/10/2010 2:44 PM EDT) URINE CHLAMYDIA AMP PROBE NEGATIVE [facility] Comment: NO CHLAMYDIA TRACHOMATIS RNA DETECTED IN THIS PATIENT'S SAMPLE. (REFERENCE RANGE/NORMAL VALUE: NOT DETECTED) URINE GC AMP PROBE NEGATIVE [facility] Comment: NO NEISSERIA GONORRHOEAE RNA DETECTED IN THIS PATIENT'S SAMPLE. (REFERENCE RANGE/NORMAL VALUE: NOT DETECTED) NOTE: THIS TEST USES TRAIN ENGINEER MEDIATED AMPLIFICATION METHOD TO DETECT rRNA FROM C.TRACHOMATIS AND N.GONORRHOEAE. A NEGATIVE RESULT DOES NOT PRECLUDE INFECTION WITH C.TRACHOMATIS OR N.GONORRHOEAE BECAUSE RESULTS ARE DEPENDENT ON ADEQUATE SPECIMEN COLLECTION, ABSENCE OF INHIBITORS, AND SUFFICIENT rRNA TO BE DETECTED. THE APTIMA COMBO2 ASSAY IS NOT INTENDED FOR THE EVALUATION OF SUSPECTED SEXUAL ABUSE OR FOR OTHER MEDICO LEGAL INDICATIONS. IS TRUE FOR ALL NON CULTURE METHODS, A POSITIVE SPECIMEN OBTAINED FROM A PATIENT AFTER THERAPEUTIC TREATMENT CANNOT BE INTERPRETED INDICATING THE PRESENCE OF VIABLE C.TRACHOMATIS OR N.GONORRHOEAE. THERAPEUTIC FAILURE OR SUCCESS CANNOT BE DETERMINED WITH THE APTIMA COMBO2 ASSAY SINCE NUCLEIC ACID MAY PERSIST FOLLOWING APPROPRIATE ANTIMICROBIAL THERAPY. A NEGATIVE URINE RESULT FOR A PATIENT WHO IS CLINICALLY SUSPECTED OF HAVING A CHLAMYDIAL OR GONOCOCCAL INFECTION DOES NOT RULE OUT THE PRESENCE OF C.TRACHOMATIS OR N.GONORRHOEAE IN THE UROGENITAL TRACT. TESTING OF AN ENDOCERVICAL(FEMALE) OR URETHRAL(MALE) SPECIMEN IS RECOMMENDED IF THERE IS HIGH CLINICAL SUSPICION OF INFECTION. PRESERVCYT LIQUID PAP AND URINE SAMPLING ARE NOT DESIGNED TO REPLACE CERVICAL EXAMS AND ENDOCERVICAL SAMPLES FOR DIAGNOSIS OF FEMALE UROGENITAL INFECTIONS. PATIENTS MAY HAVE CERVICITIS, URETHRITIS, URINARY TRACT INFECTIONS, OR VAGINAL INFECTIONS DUE TO OTHER CAUSES OR CONCURRENT INFECTIONS WITH OTHER AGENTS. 04/10/2010 2:44 PM EDT Narrative [facility] - 04/10/2010 2:44 PM EDT URINE CHLAMYDIA GC AMP PROBE us Jenna Jenkins NP LAB MICROBIOLOGY - GENERAL ORDER OTTO Final Result [facility] [address] [place] [address], [place] from Last 3 Months or Most Recently Relevant to Health Maintenance
--- OUTSIDE RECORDS SUMMARY | 2025-05-15 21:15 | XMS_ITS | Data Portability ---
Author Organization [facility], [address] Address [address] [place] [address] Assessment No assessment recorded. Plan of Treatment Reminders Order Date Submit Date Provider Last Modified By Organization Details Last Modified Time Details Appointments None recorded. Lab rapid flu (A+B) 2022 023 [email or web address] _[address], [address], 17:51:41 Referral None recorded. Procedures None recorded. Surgeries None recorded. Imaging None recorded. Medication Orders amoxicillin 875 mg tablet 2022 023 [id number], [address] [place], [address], 3 17:51:45 albuterol sulfate HFA 90 mcg/actuati on aerosol inhaler 2022 023 [id number], [address] [place], [address], 3 17:51:44 prednisone 20 mg tablet 2022 023 [id number], [address] [place], [address], 3 17:51:44 Patient TargetsNo targets recorded. Patient Instructions Encounter Date Encounter Id Patient Instructions Last Modified By Organization Details Last Modified Time 08/09/2022 [id number] earache: care instructions brandon Not available 08/09/2022 17:51:41 ear infection (otitis media): care instructions brandon Not available 08/09/2022 17:51:41 An ear infection may start with a cold and affect the middle ear (otitis media). It can hurt a lot. Most ear infections clear up on their own in a couple of days and do not need antibiotics. Also, antibiotics do not work against viruses, which may be the cause of your infection. Regular doses of pain relievers are the best way to reduce your fever and help you feel better. How can you care for yourself at home? Take pain medicines exactly as directed. If the doctor gave you a prescription medicine for pain, take it as prescribed. If you are not taking a prescription pain medicine, take an zxoo-nnh-eoqdsmg medicine, such as acetaminophen (Tylenol), ibuprofen (Advil, Motrin), or naproxen (Aleve). Read and follow all instructions on the label. Do not take two or more pain medicines at the same time unless the doctor told you to. Many pain medicines have acetaminophen, which is Tylenol. Too much acetaminophen (Tylenol) can be harmful. Plan to take a full dose of pain reliever before bedtime. Getting enough sleep will help you get better. Try a warm, moist face cloth on the ear. It may help relieve pain. If your doctor prescribed antibiotics, take them as directed. Do not stop taking them just because you feel better. You need to take the full course of antibiotics. How can you care for yourself at home? Follow your Asthma Action Plan so you can manage your symptoms at home. An Asthma Action Plan will help you prevent and control airway reactions and will tell you what to do during an asthma attack. If you do not have an Asthma Action Plan, work with your doctor to build one. Take your asthma medicine exactly as prescribed. Medicine plays an important role in controlling asthma. Talk to your doctor right away if you have any questions about what to take and how to take it. Use your quick-relief (rescue) medicine when you have symptoms of an asthma attack. Some people need to use quick-relief medicine before they exercise to prevent asthma symptoms. Salbutamol is a quick-relief medicine that is often used. In some cases, a certain type of controller inhaler is used as a quick-relief medicine. Ask your doctor what to use for quick relief. Take your controller (preventer) every day, not just when you have symptoms. Controller medicine usually includes an inhaled corticosteroid. The goal is to prevent problems before they occur. If your doctor prescribed corticosteroid pills to use during an attack, take them as directed. They may take hours to work, but they may shorten the attack and help you breathe better. Keep your quick-relief medicine with you at all times. Talk to your doctor before using other medicines. Some medicines, such as aspirin, can cause asthma attacks in some people. Check yourself for asthma symptoms to know which step to follow in your Asthma Action Plan. Watch for things like coughing, wheezing, being short of breath, and feeling tightness in your chest. Also notice if symptoms wake you up at night or if you get tired quickly when you exercise. If you have a peak flow meter, use it to check for changes in your breathing. This can help you predict when an asthma attack is going to occur. Take your medicine as recommended in your Asthma Action Plan to prevent asthma attacks or make them less severe. Talk to your doctor about making regular appointments. These visits will help you learn more about asthma and what you can do to control it. Your doctor will monitor your treatment to make sure the medicine is helping you. You should see your doctor about your asthma once or twice a year. Keep track of your asthma attacks and your treatment. After you have had an attack, write down what triggered it, what helped end it, and any concerns you have about your Asthma Action Plan. Take your diary when you see your doctor. You can then review your Asthma Action Plan and decide if it is working. Do not smoke or vape or allow others to smoke or vape around you. Avoid places where smoking and vaping are allowed. Smoking makes asthma worse. If you need help quitting, talk to your doctor about stop-smoking programs and medicines. These can increase your chances of quitting for good. Avoid smoke from forest fires. Learn what triggers an asthma attack for you, and avoid the triggers when you can. Common triggers include colds, smoke, air pollution, dust, pollen, mould (including snow mould), pets, cockroaches, stress and other strong emotions, and cold air. Get a flu shot every year. Talk to your doctor about getting a pneumococcal vaccine shot. If you have had one before, ask your doctor whether you need a second dose. If you must be around people with colds or the flu, wash your hands often. [email or web address] Not available 08/09/2022 17:51:39 - Use the medications prescribed. - Decongestants if tolerated. - Recommend recheck if fever develops or no improvement in 5-7 days. - Use saline nasal spray or neti-pot flushes once to twice a day to loosen mucus in sinuses. - I recommend having your ear rechecked in in 2 weeks with your primary provider to verify infection has resolved. -.Use a cool mist humidifier in the room that you sleep to add moisture to the air, which should soothe the airways and help loosen any mucus that may be present. -Call 911 or proceed to nearest Emergency Department if you develop shortness of breath, chest pain, severe headache or other symptoms that concern you. [email or web address] Not available 08/09/2022 17:51:25 Reason for Referral None Reported. Results Created Date Observation Date Name Description Value Unit Range Abnormal Flag Note LastModifiedBy Organization Detail LastModifiedTime 08/09/1908/09/2022 rapid flu (A+B) Unknown Analyte Normal = Negati ve Not Available [address] [address] [address] [place], [address], 08/09/2022 17:14:14 08/09/19 23 08/09/2022 rapid flu (A+B) Unknown Analyte negati ve Not Available aleja landon [address] [place], [address], 08/09/2022 17:14:14 08/09/19 23 08/09/2022 rapid flu (A+B) Unknown Analyte Normal = Negati ve Not Available aleja landon [address] [place], [address], 08/09/2022 17:14:14 08/09/19 23 08/09/2022 rapid flu (A+B) Unknown Analyte negati ve Not Available aleja landon [address] [place], [address], 08/09/2022 17:14:14 Result Notes None recorded. Problems Name Problem SNOMED Code Status Onset Date Resolution Date Notes Provider Name and Address Organization Details Recorded Time Gestational diabetes mellitus 61947900 Active 2022 DAVID Witt - [facility] 3 17:15:43 Asthma 085798665 Active 2022 DAVID Witt - [facility] 3 17:16:25 Problem Notes None recorded. Medical Equipment None Reported. Allergies No known drug allergies Medications Name Sig Start Date Stop Date Status Note LastModified by Organization Details LastModified Time acetaminoph en 325 mg tablet PLEASE SEE ATTACHED FOR DETAILED DIRECTION S active Not Available Not Available No t Available ibuprofen 800 mg tablet PLEASE SEE ATTACHED FOR DETAILED DIRECTION S active Not Available Not Available No t Available fluconazole 150 mg tablet TAKE 1 TABLET BY MOUTH ONCE 08/09 completed Not Available Not Available Not Available prednisone 20 mg tablet Take 2 tablets every day by oral route in the morning for 4 days. 2022 active Not Available Not Available Not Avai lable amoxicillin 875 mg tablet Take 1 tablet every 12 hours by oral route with meals for 10 days. 2022 active Not Available Not Available Not Avai lable docusate sodium 100 mg capsule TAKE 1 CAPSULE BY MOUTH TWICE A DAY 08/09 completed Not Available Not Available Not Available albuterol sulfate HFA 90 mcg/actuati on aerosol inhaler Inhale 2 puffs every 4 hours by inhalatio n route as needed for 10 days. 2022 active Not Available Not Available Not Avai lable ferrous sulfate 325 mg (65 mg iron) tablet,julissa yed release TAKE 1 TABLET BY MOUTH TWICE A DAY 08/09 completed Not Available Not Available Not Available nitrofurant oin monohydrate /macrocryst als 100 mg capsule TAKE 1 CAPSULE BY MOUTH TWICE A DAY FOR 5 DAYS 08/09 completed Not Available Not Available Not Available FreeStyle Lite Strips USE TO TEST BLOOD SUGAR 4 TIMES DAILY 08/09 completed Not Available Not Available Not Available Vitals Date Recorded Body height Body mass index (BMI) Body weight Respiratory rate Pain severity - 0-10 verbal numeric rating [Score] - Reported Oxygen saturation Oxygen saturation in Arterial blood by Pulse oximetry Heart rate Body temperature Systolic And Diastolic Provider Name and Address Organization Details Last Updated DateTime 3 160.02 cm 24.8 kg/m2 01369.9 3 g 20 /min 8 100 % 100 % 100 /min 97.9 [degF] 122/73 mm[Hg] MELLO MONTOYATOMER PA - [facility] 17:20:10 Social History Question Answer Notes LastModified by avandeo Details LastModified Time Tobacco Smoking Status Never Smoker MELLO QUEZADA null, [place] - [facility] 08/09/2022 17:17:50 Have You Recently Traveled Abroad? No Information not available 08/09/2022 Sex: Unknown Functional Status Question Answer Note LastModified by avandeo Details LastModified Time How many times per week do you consume alcohol? 5-7 times per week Information not available 08/09/2022 Do you use any illicit or recreational drugs? No Information not available 08/09/2022 What is your level of alcohol consumption? Occasional Information not available 08/09/2022 Mental Status None recorded. Family History Relationship Description Onset Age of this Age Resolved Age Notes LastModified by Organization Details LastModified Time Father No current problems or disability [email or web address] Not available 07/26 17:16:18 Mother No current problems or disability [email or web address] Not available 07/26 17:16:18 Medical History No medical history recorded. Gynecological HistoryNo gynecological history recorded. Obstetrics History GPAL:G 0 P 0 0 0 0 Past Encounters Encounter ID Performer Location Encounter Start Date Encounter Closed Date Diagnosis/Indication Diagnosis SNOMED-CT Code Diagnosis ICD10 Code Diagnosis IMO Codes Diagnosis [id number] [facility] [facility] [address] [place] [address] 05/27/2019 09:15:24 05/27/2019 09:46:03 [id number] [facility] [facility] [address] [place] [address] 06/12/2017 13:10:25 06/12/2017 14:54:56 [id number] [address] [address] [address] [place] [address] 05/29/2017 10:04:34 05/29/2017 10:40:50 [id number] Trevor Davies NP [address] [address] [place] [address] 08/09/2022 16:26:50 08/09/2022 17:57:24 Acute sinusitis 91728536 J01.90 Exacerbati on of intermittent asthma 259808797 J45.21 Acute righ t otitis media 863994417 H66.91 Health Concerns Section Related Observation LastModified by Organization Detai ls LastModified Time None Recorded Concern Status LastModified by Organization Details LastModified Time None Recorded Advance Directives Directive None Recorded Payers Insurance Date Sequence Insurance Name Policy Number Policy Jacobo Covered Member ID Jacobo Member ID Guarantor Name 09/09/[address] [place] [address] [id number] Meghna Holcomb [id number] Meghna Holcomb Notes Date Note Type Note Provider Name and Address Organization Details Recorded Time 08/09/2022 text/html Ear Pain Brief HPIReported by Patient COVID-19 SymptomsReported by Patient CongestionReported by Patienthx of asthma , traveling. nasal congestion with post nasal drip x 3 days. denies nay fever or fever with chills. no SOB or respiratory distress. Trevor Davies NP [address] [place], [address], [place] - [facility] 08/09/2022 17:53:40 OBGyn Episode No OBEpisode recorded.
--- OUTSIDE RECORDS SUMMARY | 2025-05-15 21:15 | XMS_ITS | Patient Health Record ---
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 Primary Care Provider Unavail able Tatiana Mcghee Unavailable [phone] Allergies Allergen (clinical drug ingredient) Drug/Non Drug Allergy documented on EMR Reaction Allergy Type Onset Date Status Streptococcus pneumoniae serotype 1 capsular antigen diphtheria YVE702 protein conjugate vaccine / Streptococcus pneumoniae serotype 14 capsular antigen diphtheria XAN180 protein conjugate vaccine / Streptococcus pneumoniae serotype 18C capsular antigen diphtheria NOK428 protein conjugate vaccine / Streptococcus pneumoniae serotype 19A capsular antigen diphtheria VEU382 protein conjugate vaccine / Streptococcus pneumoniae serotype 19F capsular antigen diphtheria KVA677 protein conjugate vaccine / Streptococcus pneumoniae serotype 23F capsular antigen diphtheria IXB202 protein conjugate vaccine / Streptococcus pneumoniae serotype 3 capsular antigen diphtheria RVI978 protein conjugate vaccine / Streptococcus pneumoniae serotype 4 capsular antigen diphtheria JMQ978 protein conjugate vaccine / Streptococcus pneumoniae serotype 5 capsular antigen diphtheria LET910 protein conjugate vaccine / Streptococcus pneumoniae serotype 6A capsular antigen diphtheria PYT633 protein conjugate vaccine / Streptococcus pneumoniae serotype 6B capsular antigen diphtheria LZG940 protein conjugate vaccine / Streptococcus pneumoniae serotype 7F capsular antigen diphtheria FKZ023 protein conjugate vaccine / Streptococcus pneumoniae serotype 9V capsular antigen diphtheria UHQ043 protein conjugate vaccine Prevnar 13 swelling Drug Allergy Active Reason For Referral No Information Medications Medication SIG (Take, Route, Frequency, Duration) Notes Start Date End Date Status Flonase Unknown Multivitamins 1 ORAL daily; Durati on: -3 Ronnie-MJ 12/21/2013 Unknown buPROPion HCl 300 mg 1 tablet once a day Unknown Fluoxetine 40MG Unkn own Vitamin D 2000 UNIT 1 tablet Orally Once a day Unknown Lo Loestrin Fe 1 MG-10 MCG / 10 MCG 1 tablet Orally Once a day; Duration: 84 days 08/03/2018 Unknown Social History Tobacco Use: Social History Observation Description Date Details (start date - stop date) Former Smoker NA - NA Tobacco Use/Smoking Question Answer Notes Are you a former smoker How long has it been since you last smoked? 3-6 months Alcohol Screen (Audit-C) Question Answer Notes Did you have a drink contain ing alcohol in the past year? Yes Points 4 Interpretation Positive How many drinks did you have on a typical day when you were drinking in the past year? 1 or 2 drinks (0 point) How often did you have a dri nk containing alcohol in the past year? 4 or more times a week (4 points) Sexual History Question Answer Notes Had sex in the past 12 months (vaginal, oral, or anal)? Yes with Men only Tobacco use other than smoking: Question Answer Notes Are you an other tobacco user? No Section Notes: MARITAL STATUS: single CHILDREN: none OCCUPATION: employed full-time NUTRITION: average diet EXERCISE: regular weight lifting / resistance exercise, regular cardio SEXUAL ACTIVITY: regular condom use, careful partner selection CONTRACEPTION: condoms .CE: Smoking: Former smoker .CE: ALCOHOL: socially drinks alcohol TEXT MESSAGING WHILE DRIVING: no SUNSCREEN: yes ILLICIT DRUGS: no SEATBEALT: yes MARITAL STATUS: single CHILDREN: none OCCUPATION: employed full-time NUTRITION: average diet EXERCISE: regular weight lifting / resistance exercise, regular cardio SEXUAL ACTIVITY: regular condom use, careful partner selection CONTRACEPTION: condoms .CE: Smoking: Former smoker .CE: ALCOHOL: socially drinks alcohol TEXT MESSAGING WHILE DRIVING: no SUNSCREEN: yes ILLICIT DRUGS: no SEATBEALT: yes MARITAL STATUS: single CHILDREN: none OCCUPATION: employed full-time NUTRITION: average diet EXERCISE: regular weight lifting / resistance exercise, regular cardio SEXUAL ACTIVITY: regular condom use, careful partner selection CONTRACEPTION: condoms .CE: Smoking: Former smoker .CE: ALCOHOL: socially drinks alcohol TEXT MESSAGING WHILE DRIVING: no SUNSCREEN: yes ILLICIT DRUGS: no SEATBEALT: yes Problems Problem Type SNOMED Code ICD Code Onset Dates Problem Status W/U Status Risk Notes Problem Hemorrhoids (98942987) Unspecified hemorrhoids (K64.9) Active confirmed Problem Acne vulgaris (96903155) Acne vulgaris (L70.0) Active confirmed Problem Abnormal vaginal bleeding (546680177) Other specified abnormal uterine and vaginal bleeding (N93.8) Active confirmed Problem History of dysplasia of cervix (978391066) Personal history of cervical dysplasia (Z87.410) Active confirmed Problem Anemia (378517511) Unspecified anemia (285.9) Active confirmed Major Problem Anxiety state (146137955) Anxiety state, unspecified (300.00) Active confirmed Major Problem Asthma (disorder) (426111141) Asthma, unspecified, unspecified status (493.90) Active confirmed Major Plan Of Treatment Pending Test Test Name Order Date Test, Urine 12/15/2018 Urinalysis 12/15/2018 Ultrasound : Pelvic 05/18/2018 ONE SWAB 03/04/2016 HCG PLUS BETA 05/18/2018 THIN PREP,HPV,KATERINE IF HPV+/CYT-,CT/GC(>2 9YR)(SCRN) 07/21/2016 TEST, (IN HOUSE) 05/18/2018 Insurance Providers Payer Name Payer Address Payer Phone Subscriber Number Group Number Insured Name Patient Relationship to Insured Coverage Start Date Coverage End Date [facility] [address] [place] [address] [phone] [id number] RADHA CAMERON Self - patient is the insured Medical (General) History Medical History History ICD Code Anemia, unspecified D64.9 Anxiety disorder, unspecified F41.9 Unspecified asthma, uncomplicated J45.90 9 Personal history of cervical dysplasia Z 87.410 Surgical History Surgery Date(Month/Year) colonoscopy endoscopy colposcopy
== END 2025-05-15 18:50 | disposition home or self-care (01) ==
PROVIDERS: Physician Assistant; Emergency Provider Emergency Medicine Emergency Medical Services
DX: F41.0 Panic disorder [episodic paroxysmal anxiety] (principal); D64.9 Anemia, unspecified; J45.909 Unspecified asthma, uncomplicated; Z79.899 Other long term (current) drug therapy
CPT/HCPCS: 36415; 80053; 80307; 81001; 83690; 83735; 84702; 85025; 93005; 99283; 99284

== ENCOUNTER → 2025-05-15 13:55 | Outpatient (BNV) | payer OTHER, SELFPAY | PROVIDERS: Emergency Provider Emergency Medicine Emergency Medical Services; Visit Provider Internal Medicine Cardiovascular Disease | DX: R94.31 Abnormal electrocardiogram [ECG] [EKG] (principal); R42 Dizziness and giddiness | CPT/HCPCS: 93010 ==